=== PATIENT | female | born 1995 | race Caucasian/White ===

== ENCOUNTER 2023-05-31 16:38 | Emergency (ER) | payer OTHER, SELFPAY ==
[2023-05-31 16:40] VITALS: BP 114/67; PULSE 97; RESP 15; TEMP 36.7; O2SAT 99
--- NOTE | 2023-05-31 17:25 | ED.GENADULT ---
HPI - General Adult General Chief complaint: Unspecified Stated complaint: jaw pain Time Seen by Provider: 05/31/23 17:00 Source: patient Mode of arrival: ambulatory Limitations: no limitations History of Present Illness HPI narrative: This is a 28-year-old female who presents to the ED with chief complaint of TMJ pain on the right side and is concerned for possible jaw dislocation. She states she has been feeling a lot of popping and pain throughout the right side of her head lately. She has history of this in the past but has not been using her bite guard or any [id number] pain medications. Denies any further complaints. Related Data Allergies Allergy/AdvReac Type Severity Reaction Status Date / Time cetirizine Allergy Mild Unknown Verified 05/31/23 17:27 Sulfa (Sulfonamide Allergy Mild Unknown Verified 05/31/23 17:27 Antibiotics) metoclopramide Allergy Unknown Unknown Verified 05/31/23 17:27 Review of Systems Review of Systems: All systems as dictated in HPI Exam Narrative: GENERAL: Well-appearing, well-nourished, and in no acute distress. HEAD: Normocephalic, atraumatic. EYES: PERRLA and EOMI. ENT: No obvious deformity or dislocation present. Full range of motion of the jaw is present. She is able to fully occlude tongue blade intraorally on both sides. Palpation of the right side of the jaw seems to reveal at that the mandible is articulating well. No popping or clicking. Minimal tenderness. Nares clear, no rhinorrhea or epistaxis. Mucous membranes moist. Oropharynx without tonsillar hypertrophy exudate or other lesions. NECK: Supple. No adenopathy or masses. CHEST: No respiratory distress. Clear to auscultation. No wheezes rales or rhonchi HEART: Regular rate and rhythm. No murmur heard. Normal peripheral pulses. ABDOMEN: Soft, nontender, nondistended, normal active bowel sounds. MSK: Normal range of motion. No edema. SKIN: Warm, dry, no rash. NEURO: Alert and oriented x3. No focal deficits. PSYCH: Normal mood and affect. Course Vital Signs Vital signs: Vital Signs Temperature 98.0 F 05/31/23 16:40 Pulse Rate 97 05/31/23 16:40 Respiratory Rate 15 05/31/23 16:40 Blood Pressure 114/67 05/31/23 16:40 Pulse Oximetry 99 05/31/23 16:40 Oxygen Delivery Room Air 05/31/23 16:40 Temperature 98.0 F 05/31/23 16:40 Pulse Rate 97 05/31/23 16:40 Respiratory Rate 15 05/31/23 16:40 Blood Pressure 114/67 05/31/23 16:40 Pulse Oximetry 99 05/31/23 16:40 Oxygen Delivery Room Air 05/31/23 16:40 Medical Decision Making MDM Narrative Medical decision making narrative: This is a 28-year-old female who presents to the ED with chief complaint of right-sided jaw pain and concern for dislocation. She has history of TMJ. Vitals are normal. Exam does not reveal any evidence of any dislocation of the jaw. Symptoms and presentation are consistent with TMJ disorder. Encouraged her to start using her bite guard at night. Naproxen prescription given. Pt will be discharged in stable condition. Return precautions given and supportive measures discussed. Pt is understanding and agreeable with plan for discharge and follow-up with PCP. Vital Signs Vital Signs: Vital Signs Temperature 98.0 F 05/31/23 16:40 Pulse Rate 97 05/31/23 16:40 Respiratory Rate 15 05/31/23 16:40 Blood Pressure 114/67 05/31/23 16:40 Pulse Oximetry 99 05/31/23 16:40 Oxygen Delivery Room Air 05/31/23 16:40 Temperature 98.0 F 05/31/23 16:40 Pulse Rate 97 05/31/23 16:40 Respiratory Rate 15 05/31/23 16:40 Blood Pressure 114/67 05/31/23 16:40 Pulse Oximetry 99 05/31/23 16:40 Oxygen Delivery Room Air 05/31/23 16:40 Discharge Plan Discharge Clinical Impression: TMJ (temporomandibular joint disorder) Patient Disposition: Home, Self-Care Condition: Stable Instructions: Antibiotic Form, Temporomandibular Disorder (ED) Additional I
== END 2023-05-31 17:39 | disposition home or self-care (01) ==
PROVIDERS: Emergency Provider Physician Assistant; PCP Internal Medicine
DX: M26.601 Right temporomandibular joint disorder, unspecified (principal)
CPT/HCPCS: 99283

== ENCOUNTER 2024-01-27 13:05 | Outpatient (CLI) | payer OTHER, SELFPAY ==
--- NOTE | ~2024-01-27 | XR_ITS ---
EXAMINATION: XR lumbar spine 2-3V DATE: 01/27/2024 13:42 INDICATION: Back pain. TECHNIQUE: 3 views of lumbar spine were obtained. COMPARISON: None. FINDINGS: There is 7 degrees dextrocurvature of thoracic lumbar spine. Vertebral body heights and int ervertebral disc heights are normal. There is multilevel mild facet joint osteoarthritis. IMPRESSION: 1. Mild lumbar facet joint osteoarthritis. Reviewed, dictated and finalized at location E.
--- NOTE | ~2024-01-27 | XR_ITS ---
EXAMINATION: XR sacrum coccyx min 2V DATE: 01/27/2024 13:42 INDICATION: Back pain. TECHNIQUE: 3 views of the sacrum and coccyx were obtained. COMPARISON: None. FINDINGS: Bone alignment is normal. No fracture. The sacroiliac joints are normal. IMPRESSION: 1. Normal sacrum and coccyx. Reviewed, dictated and finalized at location E.
--- NOTE | ~2024-01-27 | XR_ITS ---
XR cervical spine 4-5V INDICATION: Neck pain TECHNIQUE: 5 views cervical spine including flexion/extension views FINDINGS: No prior studies for comparison. The cervical spine is visualized to the cervicothoracic junction. There is no prevertebral soft tiss ue swelling, listhesis, or loss of vertebral body height. Intervertebral disc spaces are normal. Th e osseous central canal is patent. No displaced cervical spine fractures are identified. No signific ant alteration of alignment with flexion/extension views. IMPRESSION: 1. No acute osseous abnormality of the cervical spine. Reviewed, dictated and finalized at location B.
--- NOTE | ~2024-01-27 | XR_ITS ---
EXAMINATION: XR chest 2V Exam Date/Time: 01/27/2024 13:20 CDT HISTORY: BACK/NECK PAIN, POST COVID SOB Comparison: 04/28/2018, report only. RESULT: Lines, tubes, and devices: None. Lungs and pleura: Clear. Cardiomediastinal silhouette: Normal. Other: No acute osseous or upper abdominal finding. IMPRESSION: No acute cardiopulmonary process. Reviewed, dictated and finalized at location K.
== END 2024-01-27 13:06 | disposition home or self-care (01) ==
LOC: ANHIMG 13:10
PROVIDERS: PCP Family Medicine; Visit Provider Registered Nurse
DX: M47.896 Other spondylosis, lumbar region (principal)
CPT/HCPCS: 71046; 72050; 72100; 72220

== ENCOUNTER 2024-01-28 09:00 | Outpatient (CLI) | payer OTHER, SELFPAY ==
[2024-01-28 09:29] LABS: Basophils Absolute Auto 0.1 K/mm3 (0.0-0.1); Basophils Percent Auto 0.9 % (0.2-1.2); Eosinophils Absolute Auto 0.1 K/mm3 (0-0.3); Eosinophils Percent Auto 1.8 % (0-4.4); Hematocrit 41.6 % (37.0-47.0); Hemoglobin 13.8 g/dL (12.0-15.0); Immature Granulocyte Absolute 0.02 K/mm3 (0.00-0.031); Immature Granulocyte Percent A 0.3 % (0-0.5); Lymphocytes Percent Auto 31.4 % (18.3-44.2); Mean Corpuscular HGB Conc 33.2 g/dl (32-36); Mean Corpuscular Hemoglobin 30.1 pg (26-34); Mean Corpuscular Volume 90.6 fl (80-100); Mean Platelet Volume 9.2 fl (7.4-10.4); Monocytes Absolute Auto 0.4 K/mm3 (0.1-0.6); Monocytes Percent Auto 5.6 % (2.6-8.5); Neutrophils Absolute Auto 4.6 K/mm3 (1.3-6.7); Platelet Count Result 350 k/mm3 (150-375); Red Blood Count 4.59 M/mm3 (4.2-5.4); Red Cell Distribution Width 12.4 % (11.5-14.5); White Blood Count 7.7 K/mm3 (4.5-10.0)
[2024-01-28 09:42] LABS: Alanine Aminotransferase 25 U/L (6-35); Albumin Level 4.6 g/dL (3.5-5.1); Alkaline Phosphatase 63 U/L (38-126); Anion Gap 10 mmol/L (4-12); Aspartate Amino Transferase 27 U/L (14-36); Bilirubin,Total 1.3 mg/dL (0.2-1.3); Blood Urea Nitrogen 13 mg/dL (7-17); Calcium 9.4 mg/dL (8.4-10.2); Carbon Dioxide 23 mmol/L (22-30); Chloride 105 mmol/L (98-107); Cholesterol 161 mg/dL (0-200); Estimated Glomerular Filt Rate > 60; Glucose 100 mg/dL (65-110); HDL Direct 52 mg/dL; Potassium 4.2 mmol/L (3.4-5.0); Sodium 138 mmol/L (137-145); Triglycerides 123 mg/dL (<150)
[2024-01-28 09:48] LABS: Hemoglobin A1C 5.5 % (<5.7)
[2024-01-28 09:53] LABS: LDL Cholesterol Direct 88 mg/dL
[2024-01-28 10:03] LABS: Free T4 Free Thyroxine 0.98 ng/mL (0.78-2.19)
[2024-01-28 10:11] LABS: Total Triiodothyronine (T3) 1.36 NG/ML (0.97-1.69)
== END 2024-01-28 09:01 | disposition home or self-care (01) ==
LOC: ANHLAB 09:02
PROVIDERS: Registered Nurse; PCP Family Medicine; Visit Provider Family Medicine
DX: E78.5 Hyperlipidemia, unspecified (principal); R53.83 Other fatigue; E11.9 Type 2 diabetes mellitus without complications
CPT/HCPCS: 36415; 80053; 80061; 83036; 84439; 84443; 84480; 85025

== ENCOUNTER 2024-04-09 08:09 | Outpatient (CLI) | payer OTHER, SELFPAY ==
--- NOTE | 2024-04-09 12:24 | WPDSIXMINUTE ---
Six Minute Walk Procedure Procedure Performed Pulmonary Stress Test (6 min walk) Six Minute Walk Six Minute Walk: This is a 6 minute walk test. The test was performed and interpreted in accordance with the 2014 ERS/ATS task force guidelines. Findings: The patient's resting room air oxygen saturation measured by pulse oximetry was 98% and heart rate was 98 bpm. Patient ambulated for 457 meters and oxygen saturation remained 96 to 98%. Heart rate at the end of the study was 104 bpm. The patient did not qualify for supplemental oxygen at rest or with ambulation. There are no prior studies for comparison.
--- NOTE | 2024-04-09 12:25 | WPDPFTINT ---
PFT Procedure Performed PFT Procedure Performed Spirometry with Pre/Post Bronchodilator Plethysmography (Lung Vol) Diffusing Cap (DLCO) Flow Vol Loop PFT Interpretation This is a pulmonary function test with pre and post-bronchodilator spirometry, plethysmography and diffusing capacity. The test was performed and results interpreted in accordance with the 2019 and 2005 ATS/ERS Task Force guidelines respectively using the Global Lung Function Initiative-2012 reference equations. Patient demonstrated good effort and cooperation. Reproducibility criteria were met. The quality of the pre bronchodilator spirometry maneuver was Grade A and post bronchodilator spirometry maneuver was Grade A. Findings: Spirometry: The contour of the inspiratory and expiratory flow tracing are normal. The pre bronchodilator FVC is 4.68 L, 104% predicted. The pre bronchodilator FEV1 is 3.71 L, 99% predicted. The pre bronchodilator FEV1: FVC ratio 79%. The post bronchodilator FVC is 4.82 L, representing a 3% increase. The post bronchodilator FEV1 is 4.07 L, representing a 10% increase. The post bronchodilator FEV1: FVC ratio is 84%. Plethysmography: The total lung capacity is 6.09 L, 105% predicted. The functional residual capacity is 2.75 L, 86% predicted. The residual volume is 1.06 L, 65% predicted. Diffusing capacity: The diffusing capacity unadjusted for hemoglobin and carboxyhemoglobin is 24.8, 92% predicted. The diffusing capacity adjusted for alveolar volume is 4.38, 93% predicted. Impression: The spirometry is normal without evidence of an obstructive abnormality. There is no significant improvement after inhaling a single dose of albuterol. The lung volumes are normal. The diffusing capacity is normal. There are no prior studies for comparison
== END 2024-04-09 08:10 | disposition home or self-care (01) ==
LOC: ANHPFT 08:12
PROVIDERS: PCP Family Medicine; Visit Provider Nurse Practitioner Family
DX: R06.09 Other forms of dyspnea (principal); U09.9 Post COVID-19 condition, unspecified
CPT/HCPCS: 94060; 94618; 94726; 94729

== ENCOUNTER 2024-12-03 07:42 | Outpatient (CLI) | payer OTHER, SELFPAY ==
--- OUTSIDE RECORDS SUMMARY | 2024-12-03 07:48 | XMS_ITS | Clinical Summary ---
Author Organization [facility] Virtual Care Address [address] [place] [phone] Phone Care Team Providers Care Wildlife Officer Name Role Phone Eloy Zelaya MD Primary Care Provider [phone] Encounters Date Type Department Care Team Description 11/24/2024 1:26 PM LOOM FIXER SUPERVISOR - 11/24/2024 11:59 PM LOOM FIXER SUPERVISOR Hospital Encounter [facility] [address] [place] [address] Cough, unspecified type Discharge Disposition: Discharge to home or self care 11/24/2024 Telephone [facility] Healthcare Occupatiuonal Health [address] [place] [address] Room 34[address] (Third Floor) [place] [address] Gabby Mckeon, RN [place] Employee Screening 11/18/2024 Orders Only [facility] Health Information Management [address] [place] [address] Scanning, Provider from Last 3 Months Social History Tobacco Use Types Packs/Day Years Used Date Smoking Tobacco: Never Assessed Comments Unknown Sex and Gender Information Value Date Recorded Sex Assigned at Not on file Legal Sex Female 10:00 AM CDT Gender Identity Not on file Sexual Orientation Not on file Plan of Treatment Health Maintenance Due Date Last Done Comments Cervical Cancer Screening 1993 Depression Screening 1993 Hepatitis C Screening 1993 Varicella Vaccines (2 of 2 - 2-dose childhood series) 08/15/1998 05/23/1998 Regular Well Visit/Exam 18-64 2011 Covid-19 Vaccine (2023-2 5 season) 2024 12/30/2020, 12/02/2020 Influenza Vaccine (#1) 2024 0, 09/24/2019, 08/11/2013 DTaP/Tdap/Td Vaccine (3 - Td or Tdap) 11/18/2030 11/18/2020, 1993 Hepatitis B Screening Completed 1993 , 1993, 1993 HPV Vaccines Aged Out No longer eligi ble based on patient's age to complete this topic Pneumococcal vaccine <65 Aged Out No longer eligible based on patient's age to complete this topic Procedures Procedure Name Priority Date/Time Associated Diagnosis Comments INFLUENZA A/B, RSV, AND COVID-19 PCR Routine 11/24/2024 4:41 PM LOOM FIXER SUPERVISOR Cough, unspecified type SCAN - OTHER ORDERS 11/18/2024 from Last 3 Months Results * Influenza A/B, RSV, and COVID-19 PCR Nasopharyngeal (11/24/2024 4:41 PM LOOM FIXER SUPERVISOR) COVID-19 RNA Negative Negative [facility] Influenza A RNA Negative Negative [facility] Influenza B RNA Negative Negative [facility] RSV RNA Negative Negative [facility] Comment: Interpretive data: Testing performed by [facility] ([phone]). This test is performed using the [employer] Xpert Xpress CoV-2/Flu/RSV plus assay. This is a multiplex, real-time reverse transcriptase PCR assay intended for the qualitative detection of nucleic acid from SARS-CoV-2, influenza A, influenza B, and respiratory syncytial virus. This assay has been cleared by the [place] Food and Drug administration. The performance characteristics have been verified by the [facility]. Results must be considered in the clinical context, and a negative result does not rule out infection. Interpretive Data last revised 2023 Nasopharyngeal 11/24/2024 4: 41 PM LOOM FIXER SUPERVISOR 11/24/2024 6:01 PM LOOM FIXER SUPERVISOR Narrative [facility] - 11/24/2024 7:06 PM LOOM FIXER SUPERVISOR Bill to [facility] - [address] Patient is employed by/enrolled at:->[employer] Is the patient experiencing any symptoms consistent with COVID (eg. Fever, cough, shortness of breath)?->Yes Reason for testing?->Symptomatic Is the Patient experiencing symptoms consistent with COVID?->Yes Yinka Robledo MD LAB MICROBIOLOGY - GENERAL OR DERABLES Final Result [facility] Department [place] [address] [facility] * SCAN - OTHER ORDERS (11/18/2024) Provider Scanning Final Result from Last 3 Months Insurance [employer] Address: [facility] [id number] [place] [address] Care Teams Wildlife Officer Relationship Specialty Start Date End Date Eloy Zelaya MD [address] [place] [id number] PCP - General Family Medicine 01/27/24
--- OUTSIDE RECORDS SUMMARY | 2024-12-03 07:48 | XMS_ITS | Referral Summary ---
Author Organization [facility] Address [address] [place] [address] Care Team Providers Care Sales And Marketing Director Name Role Phone Tiburcio Lan MD Unavailable Lucie Casillas APRN-SENIOR STAFF PSYCHOLOGIST Unavailable [phone] PcpManav Im- Primary Care Provider U navailable Source Comments [facility],non-owned Affiliates and Associated Physician Practices is amultiple site organization consisting of ambulatory clinics and hospital sitesin [place], [place], [place] and [place]. This disclosure is being madepursuant to the Care Everywhere program and may not contain all information available regarding this patient. Last updated 18.[facility] Allergies Active Allergy Reactions Criticality Noted Date Comments Metoclopramide Neuropathy High 11/12/2019 Sulfa Drugs Urticaria 01/17/2009 Cetirizine Rash Medium 09/13/2021 Medications * Be aware that medications may not be up to date on this document. Alwaysverify current medications with the patient. Medication Sig Dispensed Refills Start Date End Date Status VIENVA 0.1-20 MG-MCG tablet Take 0.1 mg by mouth once daily 10/28/2019 Active OLANZapine (ZyPREXA) 5 MG tablet TAKE 1 TABLET BY MOUTH EVERY NIGHT AT BEDTIME 90 tablet 1 06/22/2022 Active Additional Information Patient not taking.Reported on 05/01/2023 FLUoxetine (PROzac) 20 MG capsule TAKE 1 CAPSULE BY MOUTH EVERY DAY FOR MAJOR DEPRESSION 90 capsule 1 06/22/2022 Active Additional Information Patient not taking.Reported on 05/01/2023 Active Problems Problem Noted Date Diagnosed Date Periscapular pain 03/09/2021 Vitamin D deficiency 11/18/2020 Personal history of COVID-19 11/18/2020 Anxiety and depression 11/12/2019 Immunizations Name Administration Dates Next Due INFLUENZA VACCINE, TRIV. (AF LURIA, FLUZONE TRIVALENT; 6MO+) (IIV3) 08/11/2013 Covid Moderna primary monova lent 12+ yr 0.5mL 12/30/2020,12/02/2020 DPT 05/23/1998, 4,1993, 993,1993 DTP 1993 HEP A PEDS 2 DOSE 05/26/2003,02/25/2002 HEP B VACCINE, PED/ADOL 1993,1993, HIB BOOSTER 08/31/1994, 4,1993, 993 HIB VACCINE 1993 INFLUENZA VACCINE 07/28/2020,09/24/2019 MMR 05/23/1998,04/27/1994 POLIO OPV 05/23/1998, 4,1993, 993 TDAP (7yrs+) 11/18/2020 VARICELLA 05/23/1998 Social History Tobacco Use Types Packs/Day Years Used Date Smoking Tobacco: Never Smokeless Tobacco: Never Tobacco Cessation:Counseling Given: Not Answered Alcohol Use Standard Drinks/Week Comments Not Currently 0 (1 standard drink = 0.6 oz pur e alcohol) socially AUDIT-C Answer Date Recorded Q1: How often do you have a drink containing alc ohol? 2-4 times a month 12/27/2021 Q2: How many drinks containi ng alcohol do you have on a typical day when you are drinking? 1 or 2 12/27/2021 Q3: How often do you have si x or more drinks on one occasion? Never 12/27/2021 PHQ-2 Answer Date Recorded PHQ2 TOTAL SCORE 1 05/01/2023 Sex and Gender Information Value Date Recorded Sex Assigned at Not on file Gender Identity Not on file Sexual Orientation Not on file Last Filed Vital Signs Vital Sign Reading Time Taken Comments Blood Pressure 109/58 05/01/2023 3:50 PM CDT Pulse 91 05/01/2023 3:50 PM CDT Temperature 36.5 C (97.7 F) 05/01/2023 3:50 PM CDT Respiratory Rate 17 05/01/2023 3:50 PM CDT Oxygen Saturation 99% 05/01/2023 3:50 PM CDT Inhaled Oxygen Concentration - - Weight 88.9 kg (196 lb) 05/01/2023 3:50 PM CDT Height 174 cm (5' 8.5 ) 05/01/2023 3:50 PM CDT Body Mass Index 29.37 05/01/2023 3:50 PM CDT Plan of Treatment Not on file Procedures Procedure Name Priority Date/Time Associated Diagnosis Comments PAP SMEAR REPORT ORDER 05/13/2021 from Last 3 Months or Most Recently Relevant to Health Maintenance Results * PAP SMEAR REPORT ORDER (05/13/2021) 05/13/2021 Narrative 05/13/2021 Ordered by an unspecified provider. Scanned Document LAB - PATHOLOGY/CYTO LOGY ORDERABLES from Last 3 Months or Most Recently Relevant to Health Maintenance Care Teams Sales And Marketing Director Relationship Specialty Start Date End Date Pcp, Manav Wolff Jayda PCP - General 11/12/23 Tiburcio Lan MD [address] [facility] [address] [place] [address] Obstetrics and Gynecology 11/12/19 Lucie Casillas APRN-SENIOR STAFF PSYCHOLOGIST [address] [facility] [address] [place] [address] Nurse Practitioner Family 02/13/22
--- OUTSIDE RECORDS SUMMARY | 2024-12-03 07:48 | XMS_ITS | Clinical Summary ---
Author Organization [facility] [employer] Address [address] [place] [address] Care Team Providers Care Sand Wheeler Name Role Phone Tiburcio Lan MD Unavailable Lucie Casillas APRN-SUPERVISOR [employer] Unavailable [phone] PcpManav Im- Primary Care Provider U navailable Source Comments [facility] [employer],non-owned Affiliates and Associated Physician Practices is amultiple site organization consisting of ambulatory clinics and hospital sitesin [place], [place], [place] and [place]. This disclosure is being madepursuant to the Care Everywhere program and may not contain all information available regarding this patient. Last updated 18.[facility] [employer] Allergies Active Allergy Reactions Criticality Noted Date [...] 4,1993, 993 TDAP (7yrs+) 11/18/2020 VARICELLA 05/23/1998 Family History Medical History Relation Name Comments Cancer - Breast Maternal Grandmother Diabetes - Type 2 Maternal Grandmother Cancer - Breast Maternal Great-Grandmother Migraine Mother Diabetes - Type 2 Paternal Grandmother Relation Name Status Comments Father Alive Maternal Grandmother Maternal Great-Grandmother Other Mother Alive Paternal Grandmother Social History Tobacco Use Types Packs/Day Years [...] 05/01/2023 3:50 PM CDT Plan of Treatment Health Maintenance Due Date Last Done Comments HIV SCREENING 2008 HEPATITIS C SCREENING 04/13/2011 PAP SMEAR 05/13/2024 05/13/2021 COVID-19 VACCINE ( season) 2024 12/30/2020, 12/02/2020 INFLUENZA VACCINE (#1) 2024 0, 09/24/2019, 08/11/2013 DEPRESSION SCREENING 10/14/2024 05/01/2023 DTAP/TDAP/TD VACCINES (7 - Td or Tdap) 11/18/2030 11/18/2020, 05/23/1998, 08/31/1994, Additional history exists ZOSTER VACCINE (1 of 2) 2043 HEPATITIS B VACCINE Completed 1993, 1993, 1993 HIB VACCINE Completed 08/31/1994, 10/15, 1993, Additional history exists HPV VACCINE Aged Out No longer eligi ble based on patient's age to complete this topic MENINGOCOCCAL (Group B) VACCINE Aged Out No longer eligible based on patient's age to complete this topic MENINGOCOCCAL VACCINE Aged Out No harsha ritika eligible based on patient's age to complete this topic PNEUMOCOCCAL VACCINE Aged Out No long er eligible based on patient's age to complete [...] Recently Relevant to Health Maintenance Care Teams Sand Wheeler Relationship Specialty Start Date End Date PcpManav PCP - General 11/12/23 Tiburcio Lan MD [address] [place] [address] Obstetrics and Gynecology 11/12/19 Lucie Casillas APRN-SUNDAR [address] [place] [id number] Nurse Practitioner Family 02/13/22
--- OUTSIDE RECORDS SUMMARY | 2024-12-03 07:48 | XMS_ITS | Referral Summary ---
Author Organization [facility] Virtual Care Address [address] [place] [phone] Phone Care Team Providers Care Candy Separator Enrobing Name Role Phone Eloy Zelaya MD Primary Care Provider [phone] Encounters Date Type Department Care Team Description 11/24/2024 1:26 PM EMERGENCY PREPAREDNESS COORDINATOR - 11/24/2024 11:59 PM EMERGENCY PREPAREDNESS COORDINATOR Hospital Encounter [facility] [address] [place] [address] Cough, unspecified type Discharge Disposition: Discharge to home or self care 11/24/2024 Telephone [facility] [address] [place] [address] Room [address] (Third Floor) [place] [address] Gabby Mckeon, RN [place] Employee Screening 11/18/2024 Orders Only [facility] Health Information Management [address] [place] [address] Scanning, Provider from Last 3 Months Social History Tobacco Use Types Packs/Day Years Used Date Smoking Tobacco: Never Assessed Comments Unknown Sex and Gender Information Value Date Recorded Sex Assigned at Not on file Legal Sex Female 10:00 AM CDT Gender Identity Not on file Sexual Orientation Not on file Plan of Treatment Not on file Procedures Procedure Name Priority Date/Time Associated Diagnosis Comments INFLUENZA A/B, RSV, AND COVID-19 PCR Routine 11/24/2024 4:41 PM EMERGENCY PREPAREDNESS COORDINATOR Cough, unspecified type SCAN - OTHER ORDERS 11/18/2024 from Last 3 Months Results * Influenza A/B, RSV, and COVID-19 PCR Nasopharyngeal (11/24/2024 4:41 PM EMERGENCY PREPAREDNESS COORDINATOR) COVID-19 RNA Negative Negative [facility] Influenza A RNA Negative Negative [facility] Influenza B RNA Negative Negative [facility] RSV RNA Negative Negative [facility] Comment: Interpretive data: Testing performed by [facility] ([phone]). This test is performed using the [employer] Xpert Xpress CoV-2/Flu/RSV plus assay. This is a multiplex, real-time reverse transcriptase PCR assay intended for the qualitative detection of nucleic acid from SARS-CoV-2, influenza A, influenza B, and respiratory syncytial virus. This assay has been cleared by the [place] Food and Drug administration. The performance characteristics have been verified by the [facility]. Results must be considered in the clinical context, and a negative result does not rule out infection. Interpretive Data last revised 2023 Nasopharyngeal 11/24/2024 4: 41 PM EMERGENCY PREPAREDNESS COORDINATOR 11/24/2024 6:01 PM EMERGENCY PREPAREDNESS COORDINATOR Narrative [facility] - 11/24/2024 7:06 PM EMERGENCY PREPAREDNESS COORDINATOR Bill to [place] [id number] Patient is employed by/enrolled at:->[employer] Is the patient experiencing any symptoms consistent with COVID (eg. Fever, cough, shortness of breath)?->Yes Reason for testing?->Symptomatic Is the Patient experiencing symptoms consistent with COVID?->Yes Yinka Robledo MD LAB MICROBIOLOGY - GENERAL OR DERABLES Final Result [facility] Department [place] [address] [facility] * SCAN - OTHER ORDERS (11/18/2024) us Provider Scanning Final Result from Last 3 Months [facility] Care Teams Candy Separator Enrobing Relationship Specialty Start Date End Date Eloy Zelaya MD [address] [address] PCP - General Family Medicine 01/27/24
--- OUTSIDE RECORDS SUMMARY | 2024-12-03 07:48 | XMS_ITS | Encounter Summary ---
Author Organization [facility] Address [address] [place] [address] Care Team Providers Care Pot Holder Binder Name Role Phone Harris Garcia MD Primary Care Provider [phone] Encounter Details Date Type Department Care Team (Late st Contact Info) Description 12/31/2006 Outpatient Historical [facility] Family Medicine [facility] [address] [place] [address] Arnold Casanova, DO [address] [facility] [address] [place] [address] Social History Tobacco Use Types Packs/Day Years Used Date Smoking Tobacco: Never Assessed Comments Unknown Sex and Gender Information Value Date Recorded Sex Assigned at Not on file Legal Sex Female 3:46 AM [employer] Gender Identity Not on file Sexual Orientation Not on file documented as of this encounter Plan of Treatment Not on file documented as of this encounter Visit Diagnoses Not on filedocumented in this encounter Care Teams Pot Holder Binder Relationship Specialty Start Date End Date Harris Garcia MD [address] [facility] [address] [place] [address] PCP - General Internal Medicine 12/20/16 documented as of this encounter
--- OUTSIDE RECORDS SUMMARY | 2024-12-03 07:48 | XMS_ITS | Patient Health Summary ---
Author Organization [facility] [place] Address [address] [place] [address] Care Team Providers Care Sprinkler Inspector Name Role Phone Tiburcio Lan MD Unavailable Lucie Casillas APRN-CRAB BUTCHER Unavailable [phone] PcpManav Im-Fm Primary Care Provider U maritaailable Note from [facility],non-owned Affiliates and Associated Physician Practices is amultiple site organization consisting of ambulatory clinics and hospital sitesin [place], [place], [place] and [place]. This disclosure is being madepursuant to the Care Everywhere program and may not contain all information available regarding this patient. Last updated 18.[facility] Allergies * Metoclopramide(Neuropathy) -High Criticality * Sulfa Drugs(Urticaria) * Cetirizine(Rash) -Medium Criticality * Latex,Inactive Medications * Be aware that medications may not be up to date on this document. Alwaysverify current medications with the patient. * VIENVA 0.1-20 MG-MCG tablet(Started 10/28/2019) Take 0.1 mg by mouth once daily * OLANZapine (ZyPREXA) 5 MG tablet(Started 06/22/2022) TAKE 1 TABLET BY MOUTH EVERY NIGHT AT BEDTIME 1 refill by 06/22/2023 * FLUoxetine (PROzac) 20 MG capsule(Started 06/22/2022) TAKE 1 CAPSULE BY MOUTH EVERY DAY FOR MAJOR DEPRESSION 1 refill by 06/22/2023 Active Problems Problem Noted Date Diagnosed Date Periscapular pain 03/09/2021 Vitamin D deficiency 11/18/2020 Personal history of COVID-19 11/18/2020 Anxiety and depression 11/12/2019 Immunizations * INFLUENZA VACCINE, TRIV. (AFLURIA, FLUZONE TRIVALENT; 6MO+) (IIV3)(Given 08/11/2013) * Covid Moderna primary monovalent 12+ yr 0.5mL(Given 12/30/2020, 12/02/2020) * DPT(Given 05/23/1998, 08/31/1994, 1993, 1993, 1993) * DTP(Given 1993) * HEP A PEDS 2 DOSE(Given 05/26/2003, 02/25/2002) * HEP B VACCINE, PED/ADOL(Given 1993, 1993, 1993) * HIB BOOSTER(Given 08/31/1994, 1993, 1993, 1993) * HIB VACCINE(Given 1993) * INFLUENZA VACCINE(Given 07/28/2020, 09/24/2019) * MMR(Given 05/23/1998, 04/27/1994) * POLIO OPV(Given 05/23/1998, 1993, 1993, 1993) * TDAP (7yrs+)(Given 11/18/2020) * VARICELLA(Given 05/23/1998) Social History Tobacco Use Types Packs/Day Years [...] Mass Index 29.37 05/01/2023 3:50 PM CDT Procedures * BNP (EXT RESULT ENTRY)(Performed 06/10/2023) * PT INR (EXTERNAL RESULT ENTRY)(Performed 06/10/2023) * COMP MET PANEL (EXTERNAL RESULT ENTRY)(Performed 06/10/2023) * CBC W DIFF (EXTERNAL RESULT ENTRY)(Performed 06/10/2023) * CBC W AUTO DIFFERENTIAL(Performed 09/13/2021) Performed for Anxiety and depression * COMPREHENSIVE METABOLIC PANEL(Performed 09/13/2021) Performed for Anxiety and depression * PAP SMEAR REPORT ORDER(Performed 05/13/2021) * XR HUMERUS RIGHT 2VW OR MORE(Performed 03/09/2021) Performed for Closed fracture of shaft of right humerus, unspecified fracture morphology, sequela * CT HEAD WO CONTRAST(Performed 10/18/2020) Performed for Acute nonintractable headache, unspecified headache type * HCG BETA BLOOD QUANTITATIVE(Performed 10/18/2020) * COMPREHENSIVE METABOLIC PANEL(Performed 10/18/2020) * CBC W AUTO DIFFERENTIAL(Performed 10/18/2020) * XR CERVICAL SPINE 2 OR 3VW(Performed 09/11/2020) Performed for Neck pain * SARS-COV-2 (COVID-19) IN HOUSE(Performed 08/17/2020) Performed for Exposure to SARS-associated coronavirus * VITAMIN D 25-HYDROXY(Performed 11/12/2019) Performed for Encounter for general adult medical examination with abnormal findings * TSH(Performed 11/12/2019) Performed for Encounter for general adult medical examination with abnormal findings * T4 FREE(Performed 11/12/2019) Performed for Encounter for general adult medical examination with abnormal findings * COMPREHENSIVE METABOLIC PANEL(Performed 11/12/2019) Performed for Encounter for general adult medical examination with abnormal findings * CBC W AUTO DIFFERENTIAL(Performed 11/12/2019) Performed for Encounter for general adult medical examination with abnormal findings * CARDIAC EKG ORDER(Performed 10/01/2019) * CARDIAC EKG ORDER(Performed 07/28/2019) * XR CHEST 2VW(Performed 07/28/2019) Performed for Chest pain, unspecified type * HCG URINE QUALITATIVE - POINT OF CARE(Performed 07/28/2019) * COMPREHENSIVE METABOLIC PANEL(Performed 07/28/2019) * CBC W AUTO DIFFERENTIAL(Performed 07/28/2019) * TROPONIN I(Performed 07/28/2019) * EKG 12-LEAD(Performed 07/28/2019) Performed for Chest pain, unspecified type * XR HUMERUS RIGHT 2VW OR MORE(Performed 10/28/2014) * XR HUMERUS RIGHT 2VW OR MORE(Performed 09/30/2014) * XR HUMERUS RIGHT 2VW OR MORE(Performed 09/02/2014) * XR HUMERUS RIGHT 2VW OR MORE(Performed 08/23/2014) * BASIC METABOLIC PANEL (CALCIUM TOTAL)(Performed 08/21/2014) * CBC W AUTO DIFFERENTIAL(Performed 08/21/2014) * CBC W AUTO DIFFERENTIAL(Performed 08/21/2014) * XR HUMERUS RIGHT 2VW OR MORE(Performed 08/20/2014) * FL KYRA SURGERY(Performed 08/20/2014) * HCG URINE QUALITATIVE - POCT (IP) [facility](Performed 08/20/2014) * XR HUMERUS RIGHT 2VW OR MORE(Performed 08/15/2014) * XR ELBOW RIGHT 2VW(Performed 08/15/2014) * XR SHOULDER RIGHT 2VW OR MORE(Performed 08/15/2014) Results * BNP (EXT RESULT ENTRY) (06/10/2023 7:52 AM CDT) BNP (EXTERNAL RESULT) <5.0 proBNP (EXTERNAL RESULT) n/a Blood BLOOD SPECIMEN / Unknown 06/10/2023 7:52 AM CDT Narrative Sherice Riley MA - 06/10/2023 8:35 AM CDT The accuracy and reliability of the test results are authenticated by the outside CLIA certified lab, and not by the [facility] Form Setter. The full result should be confirmed by review of the scanned report from the outside CLIA certified lab that performed the test before clinical decisions are rendered based on these results. Exercise caution when tracking results measured by different laboratories that have not been subject to cross validation studies. Historical Provider LAB - CHEMISTRY O RDERABLES * CBC W DIFF (EXTERNAL RESULT ENTRY) (06/10/2023 7:52 AM CDT) WBC (EXTERNAL RESULT) 9.2 10^3/ul Hemoglobin (EXTERNAL RESULT) 14.0 g/dl Hematocrit (EXTERNAL RESULT) 42.1 % Platelets (EXTERNAL RESULT) 388 10^3/ul Neutrophil Absolute (EXTERNAL RESULT) 61.7 10^3/ul Blood BLOOD SPECIMEN / Unknown 06/10/2023 7:52 AM CDT Sherice Cartwright MA - 06/10/2023 8:03 AM CDT The accuracy and reliability of the test results are authenticated by the outside CLIA certified lab, and not by the [facility] Form Setter. The full result should be confirmed by review of the scanned report from the outside CLIA certified lab that performed the test before clinical decisions are rendered based on these results. Exercise caution when tracking results measured by different laboratories that have not been subject to cross validation studies. Historical Provider LAB - HEMATOLOGY ORDERABLES * PT INR (EXTERNAL RESULT ENTRY) (06/10/2023 7:52 AM CDT) PT (EXTERNAL) 9.6 sec INR (EXTERNAL RESULT) 0.9 Blood BLOOD SPECIMEN / Unknown 06/10/2023 7:52 AM CDT Sherice Cartwright MA - 06/10/2023 8:35 AM CDT The accuracy and reliability of the test results are authenticated by the outside CLIA certified lab, and not by the [facility] Form Setter. The full result should be confirmed by review of the scanned report from the outside CLIA certified lab that performed the test before clinical decisions are rendered based on these results. Exercise caution when tracking results measured by different laboratories that have not been subject to cross validation studies. Historical Provider LAB - CHEMISTRY O RDERABLES * (ABNORMAL) COMP MET PANEL (EXTERNAL RESULT ENTRY) (06/10/2023 7:52 AM CDT) Glucose (EXTERNAL) 108(H) mg/dL Sodium (EXTERNAL RESULT) 138 mmol/L Potassium (EXTERNAL RESULT) 4.5 mmol/L Chloride (EXTERNAL RESULT) 106 mmol/L CO2 (EXTERNAL) 20(L) mmol/L Calcium (EXTERNAL RESULT) 9.1 mg/dL Anion Gap (EXTERNAL RESULT) 1.4 mmol/L BUN (EXTERNAL RESULT) 10 mg/dL Creatinine (EXTERNAL RESULT) 0.56(L) mg/dl Alkaline Phosphatase (EXTERNAL RESULT) 61 U/L ALT (EXTERNAL RESULT) 25 U/L AST (EXTERNAL RESULT) 29 U/L Protein Total (EXTERNAL RESULT) 7.8 gm/dL Albumin (EXTERNAL RESULT) 4.6 gm/dL Bilirubin Total (EXTERNAL RESULT) 1.00 mg/dL eGFR MDRD (EXTERNAL RESULT) >60 mL/min/1.7 3m2 eGFR (EXTERNAL) n/a mL/min/1.7 3m2 Blood BLOOD SPECIMEN / Unknown 06/10/2023 7:52 AM CDT Narrative Sherice Riley MA - 06/10/2023 8:24 AM CDT The accuracy and reliability of the test results are authenticated by the outside CLIA certified lab, and not by the [facility] Form Setter. The full result should be confirmed by review of the scanned report from the outside CLIA certified lab that performed the test before clinical decisions are rendered based on these results. Exercise caution when tracking results measured by different laboratories that have not been subject to cross validation studies. Historical Provider LAB - CHEMISTRY O RDERABLES * CBC WITH DIFFERENTIAL (09/13/2021 1:43 PM IT SECURITY ANALYST) Only the most recent of6 resultswithin the time period is included. WBC 8.9 4.4 - 10.7 x10E9/L [facility] ACCOUNT BILL RBC 4.60 3.80 - 5.20 x10E12/L [facility] ACCOUNT BILL Hemoglobin 13.6 12.0 - 15.6 gm/dL [facility] ACCOUNT BILL Hematocrit 41.4 35.9 - 45.5 % [facility] ACCOUNT BILL MCV 90.0 80.7 - 98.3 fl [facility] ACCOUNT BILL MCH 29.6 26.7 - 34.0 pg [facility] ACCOUNT BILL MCHC 32.9 30.8 - 35.9 gm/dL [facility] ACCOUNT BILL RDW 12.1 12.1 - 14.9 % [facility] ACCOUNT BILL Platelet Count 383 153 - 416 x10E9/L [facility] ACCOUNT BILL Comment:MPV FL BLOOD ([facility]) 9 .4 fl 9.4-12.9 Granulocytes % 59.5 44.0 - 73.0 % [facility] ACCOUNT BILL Lymphocytes % 32.5 20.0 - 43.0 % [facility] ACCOUNT BILL Monocytes % 5.3 5.0 - 13.0 % [facility] ACCOUNT BILL Eosinophils % 1.6 0.0 - 6.0 % [facility] ACCOUNT BILL Basophils % 0.9 0.0 - 2.0 % [facility] ACCOUNT BILL Granulocytes Absolute 5.26 2.01 - 7.14 x10E9/L [facility] ACCOUNT BILL Lymphocytes Absolute 2.88 1.07 - 3.94 x10E9/L [facility] ACCOUNT BILL Monocytes Absolute 0.47 0.26 - 1.07 x10E9/L [facility] ACCOUNT BILL Eosinophils Absolute 0.14 0 - 0.47 x10E9/L [facility] ACCOUNT BILL Basophils Absolute 0.08 0 - 0.08 x10E9/L [facility] ACCOUNT BILL Immature Granulocytes 0.2 0 - 1 % [facility] ACCOUNT BILL Immature Granulocytes Absolute 0.02 0.00 - 0.06 x10E9/L [facility] ACCOUNT BILL nRBC 0 /100 WBC [facility] ACCOUNT BILL Blood BLOOD SPECIMEN / Unknown 09/13/2021 1:43 PM IT SECURITY ANALYST 09/13/2021 Narrative Resulting Agency Comment Lab Testing performed at: [facility] [address] [phone] Faustino Simental MD LAB - HEMATOLOGY O RDERABLES [facility] ACCOUNT BILL [address] [place] [address] * COMPREHENSIVE METABOLIC PANEL (09/13/2021 1:43 PM IT SECURITY ANALYST) Only the most recent of4 resultswithin the time period is included. Glucose 83 70 - 105 mg/dL [facility] ACCOUNT BILL BUN 12 7 - 18.7 mg/dL [facility] ACCOUNT BILL Creatinine 0.74 0.57 - 1.11 mg/dL [facility] ACCOUNT BILL eGFR by MDRD >60 >60 mL/min/1.7 3m2 [facility] ACCOUNT BILL eGFR by MDRD >60 >60 mL/min/1.7 3m2 [facility] ACCOUNT BILL Sodium 138 136 - 145 mmol/L [facility] ACCOUNT BILL Potassium 4.3 3.5 - 5.1 mmol/L [facility] ACCOUNT BILL Chloride 103 98 - 107 mmol/L [facility] ACCOUNT BILL CO2 23 23 - 31 mmol/L [facility] ACCOUNT BILL Calcium 9.4 8.4 - 10.4 mg/dL [facility] ACCOUNT BILL Protein Total 7.5 6.4 - 8.3 gm/dL [facility] ACCOUNT BILL Albumin 4.4 3.5 - 5.2 gm/dL [facility] ACCOUNT BILL Bilirubin Total 0.8 0.2 - 1.2 mg/dL [facility] ACCOUNT BILL Alkaline Phosphatase 58 40 - 150 U/L [facility] ACCOUNT BILL AST 20 5 - 34 U/L [facility] ACCOUNT BILL ALT 17 0 - 61 U/L [facility] ACCOUNT BILL Blood BLOOD SPECIMEN / Unknown 09/13/2021 1:43 PM IT SECURITY ANALYST 09/13/2021 Narrative Resulting Agency Comment Lab Testing performed at: [address] [phone] Faustino Simental MD LAB - CHEMISTRY OR DERABLES [facility] ACCOUNT BILL [address] [place] [address] * PAP SMEAR REPORT ORDER (05/13/2021) 05/13/2021 Narrative 05/13/2021 Ordered by an unspecified provider. Scanned Document LAB - PATHOLOGY/CYTO LOGY ORDERABLES * XR HUMERUS RIGHT 2VW OR MORE (03/09/2021 10:58 AM CDT) Only the most recent of7 resultswithin the time period is included. Anatomical Region Laterality Modality Upper Extremity Radiographic Caryl ging 03/09/2021 11:4 3 AM CDT Impressions 03/09/2021 1:14 PM CDT FINDINGS/IMPRESSION: Chronic internally fixed fracture of the distal humerus with a plate and screws. Hardware is intact. No new fractures are identified. No soft tissue swelling is present. Dictated by Hafsa West MD (residential program worker). Dr. DYLON Trejo MD have personally reviewed and interpreted this examination/study. This report was electronically signed by DYLON SAHNI MD on 03/09/2021 1:14 PM . Narrative 03/09/2021 1:14 PM CDT EXAMINATION: XR HUMERUS RIGHT 2VW HISTORY: S42.301S: Closed fracture of shaft of right humerus, unspecified fracture morphology, sequela COMPARISON: Right humerus radiograph dated 10/28/2014 Procedure Note Dylon Sahni MD - 03/09/2021 EXAMINATION: XR HUMERUS RIGHT 2VW HISTORY: S42.301S: Closed fracture of shaft of right humerus,unspecified fracture morphology, sequela COMPARISON: Right humerus radiograph dated 10/28/2014 FINDINGS/IMPRESSION: Chronic internally fixed fracture of the distal humerus with a plate and screws. Hardware is intact. No new fractures are identified. No soft tissue swelling is present. Dictated by Hafsa West MD (residential program worker). Dr. DYLON Trejo MD have personally reviewed and interpreted this examination/study. This report was electronically signed by DYLON SAHNI MD on03/09/2021 1:14 PM . Kelly Fernandez MD DIAGNOSTIC IMAGING ORDERABLES * CT HEAD NON CONTRAST - intracranial hemorrhage (10/18/2020 9:36 PM IT SECURITY ANALYST) Anatomical Region Laterality Modality Head Computed Tomogra phy 10/19/2020 6:59 AM IT SECURITY ANALYST Impressions 10/19/2020 9:15 AM IT SECURITY ANALYST Negative for intracranial mass or hemorrhage. Edited by Gema Lawton on 10/19/2020 8:28 AM *Reading Radiologist: Regulo Enrique on 10/19/2020 at 9:15 AM Narrative 10/19/2020 9:15 AM IT SECURITY ANALYST CT BRAIN WITHOUT CONTRAST HISTORY: Headache, history of Covid 19. Images from the skull base to the vertex show no intracranial mass or hemorrhage or extracerebral fluid collection. Bone windows show no gross skull lesion. There is mucosal thickening in the right maxillary sinus. Procedure Note Regulo Enrique MD - 10/19/2020 CT BRAIN WITHOUT CONTRAST HISTORY: Headache, history of Covid 19. Images from the skull base to the vertex show no intracranial mass or hemorrhage or extracerebral fluid collection. Bone windows show no gross skull lesion. There is mucosal thickening in the right maxillary sinus. IMPRESSION Negative for intracranial mass or hemorrhage. Edited by Gema Lawton on 10/19/2020 8:28 AM *Reading Radiologist: Regulo Enrique on 10/19/2020 at 9:15 AM Yvonne Adam INVESTMENT STRATEGIST-CRAB BUTCHER CT ORDERABLE S * HCG BETA BLOOD QUANTITATIVE (10/18/2020 9:09 PM IT SECURITY ANALYST) hCG Quantitative <1.20 mIU/mL 10/18/19 9:41 PM IT SECURITY ANALYST [facility] Blood BLOOD SPECIMEN / Unknown Venipuncture / Unknown 10/18/2020 9:09 PM IT SECURITY ANALYST 10/18/2020 9:14 PM IT SECURITY ANALYST Narrative [facility] - 10/18/2020 9:41 PM IT SECURITY ANALYST hCG Reference Range, mIU/mL: Males 0-2.0 Non Females 0-6.0 Perimenopausal Females ages 41-55* 0-7.7 Postmenopausal Females age >55* 0-14 Females, Weeks after Last Menstrual Period 0.2-1 week 5-50 1 - 2 weeks 50-500 2 - 3 weeks 100-5000 3 - 4 weeks 500-10,000 4 - 5 weeks 1000-50,000 5 - 6 weeks 10,000-100,000 6 - 8 weeks 15,000-200,000 2 - 3 months 10,000-100,000 Trophoblastic Disease >100,000 *In higher than expected hCG in females > age 40, a serum FSH >20 IU/L makes unlikely. Yvonne Adam INVESTMENT STRATEGIST-CRAB BUTCHER LAB - CHEMIS TRY ORDERABLES [facility] [address] [phone] * XR CERVICAL SPINE 2 OR 3VW (09/11/2020 12:39 AM IT SECURITY ANALYST) Anatomical Region Laterality Modality Spine Radiographic Caryl ging 09/11/2020 12:3 8 AM IT SECURITY ANALYST Impressions 09/11/2020 10:36 AM IT SECURITY ANALYST IMPRESSION: No acute fracture or subluxation identified. Dictated by Lady Caruso MD (residential program worker). Dr. ANGELIKA Trejo M.D. have personally reviewed and interpreted this examination/study. This report was electronically signed by ANGELIKA MOORE M.D. on 09/11/2020 10:36 AM . Narrative 09/11/2020 10:36 AM IT SECURITY ANALYST EXAMINATION: XR CERVICAL SPINE 2 OR 3VW HISTORY: M54.2: Neck pain, fracture? COMPARISON: No prior study is available for comparison. FINDINGS: The vertebral bodies are normally aligned. No acute fracture or compression deformity is identified. The intervertebral disc spaces are maintained. The dens is intact and the lateral masses are normally aligned. The predental interval and prevertebral soft tissues are normal. Procedure Note Angelika Moore MD - 09/11/2020 EXAMINATION: XR CERVICAL SPINE 2 OR 3VW HISTORY: M54.2: Neck pain, fracture? COMPARISON: No prior study is available for comparison. FINDINGS: The vertebral bodies are normally aligned. No acute fracture or compression deformity is identified. The intervertebral disc spaces are maintained. The dens is intact and the lateral masses are normally aligned. The predental interval and prevertebral soft tissues arenormal. IMPRESSION: No acute fracture or subluxation identified. Dictated by Lady Caruso MD (residential program worker). I, Dr. ANGELIKA STOLAR, M.D. have personally reviewed and interpreted this examination/study. This report was electronically signed by ANGELIKA MOORE M.D. on09/11/2020 10:36 AM . Taqueria Stevens MD DIAGNOSTIC IMAGING O RDERABLES * SARS-COV-2 (COVID-19) IN HOUSE (08/17/2020 8:45 AM IT SECURITY ANALYST) COVID-19 PCR Not detected Not detected 08/17/2020 9:34 PM IT SECURITY ANALYST [facility] Microbiology SPECIMEN FROM NASOPHARYNGEAL STRUCTURE / Unknown 08/17/2020 8:45 AM IT SECURITY ANALYST 08/17/2020 11:23 AM IT SECURITY ANALYST Narrative [facility] - 08/17/2020 9:34 PM IT SECURITY ANALYST This nucleic acid amplification assay performance was validated by [facility]. This test has been authorized by the Food and Drug administration (FDA)under an Emergency Use Authorization (EUA). This test has been validated in accordance with the FDA's guidance document Policy for Diagnostic Testing in Laboratories Certified to perform High Complexity Testing under CLIA prior to Emergency Use Authorization for Coronavirus Disease-2019 during the Public Health Emergency issued on December 12, 2019. FDA independent review of this validation is pending. This test is only authorized for the duration of time the declaration that circumstances exist justifying the authorization of emergency use of in vitro diagnostic tests for detection of SARS-CoV-2 virus and/or diagnosis of COVID-19 infection under section 564(b)(1) of the Act, 21 U.S.C 360bbb-3 (b)(1), unless the authorization is terminated or revoked sooner. Fact Sheets for this EUA assay are available upon request. Donald Avila MD LAB - MICROBIO LOGY ORDERABLES [facility] [address] [place] [address], [facility] [phone] * (ABNORMAL) VITAMIN D 25-HYDROXY (11/12/2019 11:29 AM IT SECURITY ANALYST) Vitamin D, 25 Hydroxy 27.5(L) 30 - 100 ng/mL [facility] INSURANCE BILL Comment: Vitamin D Status: Deficiency <20 ng/mL Insufficiency 20-30 ng/mL Sufficiency 30-100 ng/mL Toxicity >100 ng/mL FASTING Blood BLOOD SPECIMEN / Unknown 11/12/2019 11:29 AM IT SECURITY ANALYST 11/12/2019 Narrative Resulting Agency Comment Lab Testing performed at: [address] [phone] Arnold Casanova DO LAB - CHEMISTRY ORDE RABLES [facility] INSURANCE BILL [address] [place] [address] * TSH (11/12/2019 11:29 AM IT SECURITY ANALYST) TSH 1.0859 0.35 - 4.94 uIU/mL [facility] INSURANCE BILL Comment:FASTING Blood BLOOD SPECIMEN / Unknown 11/12/2019 11:29 AM IT SECURITY ANALYST 11/12/2019 Narrative Resulting Agency Comment Lab Testing performed at: [address] [phone] Arnold Casanova DO LAB - CHEMISTRY ORDE RABLES Performing Organization Address City/[facility]/ZIP Co de Phone Number [facility] INSURANCE BILL [address] [place] [address] * T4 FREE (11/12/2019 11:29 AM IT SECURITY ANALYST) T4 Free 1.14 0.70 - 1.48 ng/dL [facility] INSURANCE BILL Comment:FASTING Blood BLOOD SPECIMEN / Unknown 11/12/2019 11:29 AM IT SECURITY ANALYST 11/12/2019 Narrative Resulting Agency Comment Lab Testing performed at: [address] [phone] Arnold Casanova DO LAB - CHEMISTRY ORDE RABLES [facility] INSURANCE BILL [address] [place] [address] * CARDIAC EKG ORDER (10/01/2019 1:48 PM IT SECURITY ANALYST) Only the most recent of2 resultswithin the time period is included. Narrative 10/01/2019 1:48 PM IT SECURITY ANALYST Ordered by an unspecified provider. Scanned Document CARDIAC SERVICES ORD ERABLES * XR CHEST 2VW (07/28/2019 2:15 PM CDT) Anatomical Region Laterality Modality Chest Radiographic Caryl ging 07/28/2019 2:24 PM CDT Impressions 07/28/2019 2:46 PM CDT IMPRESSION: No acute pulmonary process. Dictated by Jens Elizabeth MD (Cab Station Attendant). Dr. ANGELIKA Trejo M.D. have personally reviewed and interpreted this examination/study. This report was electronically signed by ANGELIKA MOORE M.D. on 07/28/2019 2:46 PM . Narrative 07/28/2019 2:46 PM CDT EXAMINATION: XR CHEST 2VW HISTORY: Chest pain COMPARISON: None available FINDINGS: There is no focal consolidation, pleural effusion, or pneumothorax. The cardiomediastinal silhouette is normal. The visible bony thorax is intact. Procedure Note Angelika Moore MD - 07/28/2019 EXAMINATION: XR CHEST 2VW HISTORY: Chest pain COMPARISON: None available FINDINGS: There is no focal consolidation, pleural effusion, or pneumothorax. The cardiomediastinal silhouette is normal. The visible bony thorax isintact. IMPRESSION: No acute pulmonary process. Dictated by Jens Elizabeth MD (Cab Station Attendant). Dr. ANGELIKA Trejo M.D. have personally reviewed and interpreted this examination/study. This report was electronically signed by ANGELIKA MOORE M.D. on07/28/2019 2:46 PM . Yady Vallejo INVESTMENT STRATEGIST-CRAB BUTCHER DIAGNOSTIC IMAGING ORDERABLES * HCG URINE QUALITATIVE - POINT OF CARE (07/28/2019 1:56 PM CDT) HCG Qual Urine Negative Negative [facility] P OCT TESTING QC Verified Yes Yes [facility] POCT TESTING Urine URINE / Unknown 07/28/2019 1 :56 PM CDT Donald Clemons MD LAB - POINT OF CARE ORDERABLES Performing Organization Address [facility]/ZIP Co de Phone Number [facility] POCT TESTING [address] [place] [address] * TROPONIN I (07/28/2019 1:51 PM CDT) Pathologist [facility] Troponin I <0.010 <0.032 ng/mL 07/28/2019 2:54 PM CDT [facility] Blood BLOOD SPECIMEN / Unknown Venipuncture / Unknown 07/28/2019 1:51 PM CDT 07/28/2019 2:03 PM CDT Donald Clemons MD LAB - CHEMISTRY ORDE RABLES Performing Organization Address [facility] Co de Phone Number [facility] [address] [phone] * EKG 12-LEAD (07/28/2019 1:11 PM CDT) [facility] Ventricular Rate 100 BPM [facility] MUSE Atrial Rate 100 BPM [facility] MUSE P-R Interval 144 ms [facility] MUSE QRS Duration ms 90 ms [facility] MUSE Q-T Interval ms 348 ms [facility] MUSE QTC Calculation (Bezet) 448 ms [facility] MUSE Calculated P Smoot 76 degrees SL MUSE Calculated R Smoot 66 degrees [facility] Calculated T Smoot 37 degrees [facility] Interpretation EKG NORMAL SINUS RHYTHM NORMAL ECG NO PREVIOUS ECGS AVAILABLE Confirmed by Samantha Black ([id number]), assistant film editor Maren Tobar ([id number]) on 09/02/2019 9:21:18 PM [facility] 07/28/2019 1:11 PM CDT 09/02/2019 9:21 PM IT SECURITY ANALYST Donald Clemons MD ECG ORDERABLES Performing Organization Address [facility] Co de Phone Number [facility] * (ABNORMAL) BASIC METABOLIC PANEL (CALCIUM TOTAL) (08/21/2014 6:45 AM IT SECURITY ANALYST) Pathologist [facility] BUN 6(L) 7 - 26 mg/dL [facility] Creatinine 0.6 0.6 - 1.2 mg/dL [facility] Sodium 139 136 - 145 mmol/L [facility] Potassium 3.5 3.5 - 4.5 mmol/L [facility] Chloride 103 98 - 107 mmol/L [facility] CO2 25 22 - 29 mmol/L [facility] Glucose 96 70 - 115 mg/dL [facility] Calcium 8.9 8.4 - 10.2 mg/dL [facility] Anion Gap 15 8 - 18 [facility] BUN/Creatinine Ratio 10 7 - 23 [facility] Osmolality Calculated 271 270 - 300 mOsm/kg [facility] eGFR >60 >60 mL/min/1.7 3 m2 [facility] Blood specimen (specimen) BLOOD SPECIMEN / Unknown 08/21/2014 6:45 AM IT SECURITY ANALYST 08/21/2014 10:22 AM IT SECURITY ANALYST Kelly Fernandez MD LAB - CHEMISTRY ORD ERABLES Performing Organization Address [facility]/ZIP Co de Phone Number [address] [phone] * [place] [facility] (08/20/2014 1:22 PM IT SECURITY ANALYST) Anatomical Region Laterality Modality Other Narrative 08/20/2014 1:22 PM IT SECURITY ANALYST Fluoroscopy was used for this exam. Please see the Operative report. Procedure Note Provider, MD Antonia - 01/11/2018 Fluoroscopy was used for this exam. Please see the Operative report. Kelly Fernandez MD FLUOROSCOPY ORDERAB LES * HCG URINE QUALITATIVE - POCT (IP) [facility] (08/20/2014 10:06 AM IT SECURITY ANALYST) NEGATIVE [facility] MEGHANN SCHROEDER) Comment:Pusher Operator: SRIKANTH CIFUENTES 08/20/2014 10:0 6 AM IT SECURITY ANALYST Kelly Fernandez MD LAB - POINT OF CARE ORDERABLES Performing Organization Address City/[facility]/ZIP Co de Phone Number ADRIANA SCHROEDER) * XR ELBOW RIGHT 2VW (08/15/2014 5:55 AM IT SECURITY ANALYST) Anatomical Region Laterality Modality Upper Extremity Other Impressions 08/15/2014 8:11 AM IT SECURITY ANALYST Impression: Comminuted, mildly displaced distal humeral diaphyseal fracture. No acute fracture distally in the elbow. Report dictated by Jens Welch M.D. (resident). I, Dr. JUNE SCHUMACHER M.D. have personally reviewed and interpreted this examination/study. This report was electronically signed by JUNE SCHUMACHER M.D. on 08/15/2014 8:11 AM . Narrative 08/15/2014 8:11 AM IT SECURITY ANALYST Exam: 1. Right humerus, 2 views 2. Right elbow, 3 views Date: 08/15/2014 6:04 AM History: Humerus fracture Findings: Humerus: A splint obscures bony detail. There is a comminuted , obliquely oriented fracture through distal humerus, with mild lateral and posterior displacement of the distal humerus. No acute fracture is seen in the proximal humerus. The humeral head is well-seated within the glenoid fossa. The bone mineralization is normal. Elbow: A splint obscures bony detail. There is a comminuted distal humerus fracture which does not appear to extend to the elbow joint. No acute fracture seen in the proximal radius or ulna. The elbow alignment is maintained. Procedure Note June Schumacher MD - 01/11/2018 Exam: 1. Right humerus, 2 views 2. Right elbow, 3 views Date: 08/15/2014 6:04 AM History: Humerus fracture Findings: Humerus: A splint obscures bony detail. There is a comminuted , obliquely orientedfracture through distal humerus, with mild lateral and posteriordisplacement of the distal humerus. No acute fracture is seen in theproximal humerus. The humeral head is well-seated within the glenoid fossa. The bone mineralization is normal. Elbow: A splint obscures bony detail. There is a comminuted distal humerusfracture which does not appear to extend to the elbow joint. No acutefracture seen in the proximal radius or ulna. The elbow alignment ismaintained. IMPRESSION Impression: Comminuted, mildly displaced distal humeral diaphyseal fracture. No acute fracture distally in the elbow. Report dictated by Jens Welch M.D. (resident). Dr. JUNE Trejo M.D. have personally reviewed and interpreted thisexamination/study. This report was electronically signed by JUNE SCHUMACHER M.D. on08/15/2014 8:11 AM . Saida Pires MD DIAGNOSTIC IMAGING O RDERABLES * XR SHOULDER RIGHT 2VW OR MORE (08/15/2014 3:35 AM IT SECURITY ANALYST) Anatomical Region Laterality Modality Upper Extremity Other Impressions 08/15/2014 7:57 AM IT SECURITY ANALYST Impression: Partially imaged mid humeral shaft fracture. No shoulder dislocation. Report dictated by Jens Welch M.D. (resident). Dr. JUNE Trejo M.D. have personally reviewed and interpreted this examination/study. This report was electronically signed by JUNE SCHUMACHER M.D. on 08/15/2014 7:57 AM . Narrative 08/15/2014 7:57 AM IT SECURITY ANALYST Exam: Right shoulder, 4 views Date: 08/15/2014 3:16 AM History: Humerus fracture Findings: A splint is in place. A humeral diaphyseal fracture is partially imaged on the axillary view. No acute fracture is seen in the proximal humerus. The humeral head is well-seated within the glenoid fossa. The acromioclavicular joint is intact. The bone mineralization is normal. Procedure Note June Schumacher MD - 01/11/2018 Exam: Right shoulder, 4 views Date: 08/15/2014 3:16 AM History: Humerus fracture Findings: A splint is in place. A humeral diaphyseal fracture is partially imaged onthe axillary view. No acute fracture is seen in the proximal humerus. Thehumeral head is well-seated within the glenoid fossa. Theacromioclavicular joint is intact. The bone mineralization is normal. IMPRESSION Impression: Partially imaged mid humeral shaft fracture. No shoulder dislocation. Report dictated by Jens Welch M.D. (resident). Dr. JUNE Trejo M.D. have personally reviewed and interpreted thisexamination/study. This report was electronically signed by JUNE SCHUMACHER M.D. on08/15/2014 7:57 AM . Saida Pires MD DIAGNOSTIC IMAGING [facility] Care Teams Sprinkler Inspector Relationship Specialty Start Date End Date Pcp, Manav Wolff - PCP - General 11/12/23 Tiburcio Lan MD [address] [facility] [address] [place] [id number] Obstetrics and Gynecology 11/12/19 Lucie Casillas, EVY-CRAB BUTCHER [address] [facility] [address] [place] [address] Nurse Practitioner Family 02/13/22
--- OUTSIDE RECORDS SUMMARY | 2024-12-03 07:48 | XMS_ITS | Clinical Summary ---
Author Organization [facility] Mariella Kenney Address [address] [place] [address] Care Team Providers Care Corporate Safety Director Name Role Phone Harris Garcia MD Primary Care Provider [phone] Allergies Active Allergy Reactions Criticality Noted Date Comments Sulfa (Sulfonamide Antibiotics) Rash,Unknown Low Medications clotrimazole (LOTRIMIN) 1 % Topical CreaIndications :Tinea corporis Apply to affected area 2 times daily. 1 Tube 0 04/10/2010 Active Active Problems Problem Noted Date Diagnosed Date Malaise and fatigue 11/19/2008 Allergic rhinitis 11/19/2008 Family History Medical History Relation Name Comments Diabetes Maternal Grandmother Thyroid Disease Maternal Grandmother Cancer Paternal Grandmother Diabetes Paternal Grandmother Relation Name Status Comments Father Alive Maternal Grandfather Alive Maternal Grandmother Alive Mother Alive Paternal Grandfather Alive Paternal Grandmother Alive Social History Tobacco Use Types Packs/Day Years Used Date Smoking Tobacco: Never Alcohol Use Standard Drinks/Week Comments No 0 (1 standard drink = 0.6 oz pur e alcohol) Comments No Sex and Gender Information Value Date Recorded Sex Assigned at Not on file 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 Gender Identity Not on file Sexual Orientation Not on file Last Filed Vital Signs Vital Sign Reading Time Taken Comments Blood Pressure 110/62 04/10/2010 11:15 AM CDT Pulse 80 04/10/2010 11:15 AM CDT Temperature - - Respiratory Rate 16 04/10/2010 11:15 AM CDT Oxygen Saturation - - Inhaled Oxygen Concentration - - Weight 65.8 kg (145 lb) 04/10/2010 11:15 AM CDT Height 172.7 cm (5' 8 ) 04/10/2010 11:15 AM CDT Body Mass Index 22.05 04/10/2010 11:15 AM CDT Plan of Treatment Health Maintenance Due Date Last Done Comments DTAP/TDAP/TD VACCINES (1 - Tdap) 2012 HEPATITIS B VACCINES (1 of 3 - 19+ 3-dose series) 2012 CERVICAL CANCER SCREENING 2023 12/21/2008 INFLUENZA VACCINE (#1) 2024 HPV VACCINES Aged Out No longer eligi ble based on patient's age to complete this topic PNEUMOCOCCAL VACCINE 0-64 YEARS Aged Out No longer eligible based on patient's age to complete this topic Procedures Procedure Name Priority Date/Time Associated Diagnosis Comments CERV/VAG CYTOPATH,SUREPATH FCL PT &RFLX HPV Routine 12/21/2008 12:00 PM CDT Routine Gynecological Examination Vaginal Discharge from Last 3 Months or Most Recently Relevant to Health Maintenance Results * CERV/VAG CYTOPATH,SUREPATH FCL PT &RFLX HPV (12/21/2008 12:00 PM CDT) REPORT STATUS FINAL [facility] CLINICAL INFORMATION [facility] Comment:Routine exam LAST MENSTRUAL PERIOD [facility] Comment:Information not prov ided PREV PAP: [facility] Comment:Information not prov ided PREV BX: [facility] Comment:Information not prov ided SOURCE [facility] Comment:Information not prov ided ADEQUACY: [facility] Comment: Satisfactory for evaluation. Endocervical/transformation zone component absent. Age and/or menstrual status not provided INTERPRETATION [facility] Comment:Negative for intraep ithelial lesion or malignancy. COMMENT [facility] Comment: This Pap test has been evaluated with computer assisted technology. Based on the cytology result, reflex High Risk HPV DNA testing was not performed. BENCH TECHNICIAN: Bundle It [facility] Comment: BEF, CT(ASCP) Test Performed at: [facility] [place] [address] ALEXSANDRA LERMA MD Endocervical Arnold Casanova DO PATHOLOGY/CYTOLOGY ORDERABLES Final Result INTERFACE SYSTEM Refer to clinic/hospital department [facility] [address] [place] [address] from Last 3 Months or Most Recently Relevant to Health Maintenance Insurance [facility] Amina [id number] [id number] Care Teams Corporate Safety Director Relationship Specialty Start Date End Date Harris Garcia MD [address] [facility] [address] [place] [address] PCP - General Internal Medicine 12/20/16
[2024-12-03 08:09] LABS: Basophils Absolute Auto 0.1 K/mm3 (0.0-0.1); Basophils Percent Auto 0.7 % (0.2-1.2); Eosinophils Absolute Auto 0.2 K/mm3 (0-0.3); Eosinophils Percent Auto 1.8 % (0-4.4); Hemoglobin 14.1 g/dL (12.0-15.0); Immature Granulocyte Absolute 0.01 K/mm3 (0.00-0.031); Immature Granulocyte Percent A 0.1 % (0-0.5); Lymphocytes Absolute Auto 2.42 K/mm3 (0.9-3.2); Mean Corpuscular HGB Conc 33.6 g/dl (32-36); Mean Corpuscular Hemoglobin 29.9 pg (26-34); Mean Platelet Volume 9.1 fl (7.4-10.4); Monocytes Absolute Auto 0.5 K/mm3 (0.1-0.6); Monocytes Percent Auto 5.6 % (2.6-8.5); Neutrophils Absolute Auto 5.2 K/mm3 (1.3-6.7); Neutrophils Percent Auto 62.8 % (45.5-73.1); Platelet Count Result 387 k/mm3 (150-375); Red Blood Count 4.72 M/mm3 (4.2-5.4); Red Cell Distribution Width 11.9 % (11.5-14.5); White Blood Count 8.4 K/mm3 (4.5-10.0)
[2024-12-03 08:30] LABS: Rheumatoid Factor < 12.0 IU/ML (<12)
[2024-12-03 09:30] LABS: Erythrocyte Sedimentation Rate 20 mm/hr (0-20)
[2024-12-03 10:18] LABS: Alanine Aminotransferase 25 U/L (6-35); Albumin Level 4.4 g/dL (3.5-5.1); Alkaline Phosphatase 57 U/L (38-126); Anion Gap 10 mmol/L (4-12); Aspartate Amino Transferase 25 U/L (14-36); Bilirubin,Total 1.1 mg/dL (0.2-1.3); Blood Urea Nitrogen 16 mg/dL (7-17); Calcium 9.1 mg/dL (8.4-10.2); Carbon Dioxide 23 mmol/L (22-30); Chloride 105 mmol/L (98-107); Estimated Glomerular Filt Rate > 60; Glucose 103 mg/dL (65-110); Potassium 4.4 mmol/L (3.4-5.0); Sodium 138 mmol/L (137-145)
[2024-12-03 10:45] LABS: Hemoglobin A1C 5.9 % (<5.7)
== END 2024-12-03 07:43 | disposition home or self-care (01) ==
LOC: ANHLAB 07:46
PROVIDERS: PCP Family Medicine; Visit Provider Registered Nurse
DX: R73.01 Impaired fasting glucose (principal)
CPT/HCPCS: 36415; 80053; 83036; 85025; 85652; 86140; 86430